=== PATIENT | male | born 1950 | race Two or more races ===

== ENCOUNTER 2021-11-19 10:41 | Inpatient (IN) | payer MEDICARE, OTHER ==
[~2021-11-19] VITALS: Ht 180.3 cm; Wt 91.6 kg
[2021-11-19] MEDS ORDERED: SODIUM CHLORIDE 0.9% 1,000 ML IV ONE ×2 (11:30)
[2021-11-19 11:41] LABS: Basophils # (auto) 0.1 10 ^3/uL (0-0.2); Basophils % (auto) 0.8 % (0.0-2.0); Eosinophils # (auto) 0 10 ^3/uL (0-0.8); Eosinophils % (auto) 0.2 % (0.0-7.0); Hematocrit 44.1 % (41.0-53.0); Hemoglobin 13.8 g/dL (13.5-17.5); Lymphocytes # (auto) 1.1 10 ^3/uL (0.4-5.4); Lymphocytes % (auto) 6.3 % (10.0-50.0); Mean Corpuscular Hgb Conc. 31.2 g/dL (32.0-36.0); Mean Corpuscular Volume 86.5 fL (80.0-100.0); Monocytes # (auto) 1.3 10 ^3/uL (0-1.3); Monocytes % (auto) 7.2 % (0.0-12.0); Neutrophils # (auto) 14.9 10 ^3/uL (1.6-8.6); Neutrophils % (auto) 85.5 % (37.0-80.0); Red Cell Distribution Width 19.7 % (11.8-14.3); White Blood Cell 17.5 10^3/uL (4.4-10.8)
[2021-11-19 11:56] LABS: INR 1.09 (0.9-1.15); Partial Thromboplastin Time 36.2 sec (24.6-33.4)
[2021-11-19 11:59] LABS: Albumin 3.3 g/dL (3.4-5.0); Calcium 9.4 mg/dL (8.5-10.1); Magnesium 2.9 mg/dL (1.6-2.6); Potassium 4.9 mmol/L (3.5-5.1)
[2021-11-19 12:02] LABS: BUN/Creatinine Ratio 21.9; Bilirubin, Total 0.8 mg/dL (0.2-1.0); Total Protein 8.3 g/dL (6.4-8.2)
[2021-11-19 13:29] LABS: Urine Bacteria FEW /hpf (None Seen); Urine Blood 3+ /uL (Negative); Urine Specific Gravity 1.015 (1.001-1.035); Urine WBC 367 /hpf (0 - 3); Urine WBC Clumps PRESENT /hpf (None Seen)
[2021-11-19] MEDS ORDERED: cefTRIAXone 1GM/50ML D5W 50 ML IV ONE (14:45)
[2021-11-19] MEDS ORDERED: FUROSEMIDE 40 MG/4 ML VIAL IV ONE (14:45)
[2021-11-19] MEDS ORDERED: MORPHINE SULFATE INJ 2 MG/ml SYRG IV PRN (15:45)
[2021-11-19] MEDS ORDERED: NITROGLYCERIN 0.4 MG SL TAB SL PRN (15:45)
[2021-11-19 16:25] LABS: Cholesterol 107 mg/dL (< 200)
[2021-11-19 16:26] LABS: HDL Cholesterol 63 mg/dL (40-59); LDL Cholesterol 47 mg/dL (< 100); Triglycerides 60 mg/dL (< 150)
[2021-11-19] MEDS: CLINDAMYCIN 600MG IV 50 ML IV SCH ×2 (18:01→23:42)
[2021-11-19 18:20] LABS: Lactic Acid w/Reflex 2.1 mmol/L (0.4-2.0)
[2021-11-19 22:00] VITALS: BP 102/61
[2021-11-19 22:40] VITALS: BP 125/72
[2021-11-19] MEDS ORDERED: LOSA-69 PO (22:53)
[2021-11-19] MEDS ORDERED: METO25TA93 PO (22:53)
[2021-11-19] MEDS ORDERED: METF-372 PO (22:53)
[2021-11-19] MEDS ORDERED: SPIR25TA8 PO (22:53)
[2021-11-19] MEDS ORDERED: POTA10TA32 PO (22:53)
[2021-11-19] MEDS ORDERED: ROSU1TAB14 PO (22:53)
[2021-11-19] MEDS ORDERED: APIX5TAB PO (22:53)
[2021-11-19] MEDS ORDERED: FUR20T PO (22:53)
[2021-11-19] MEDS ORDERED: SACU1TAB PO (22:53)
[2021-11-19] MEDS ORDERED: GABA-339 PO (22:53)
[2021-11-19] MEDS ORDERED: LEVO50TA7 PO (22:53)
[2021-11-20] MEDS: MORPHINE SULFATE INJ 2 MG/ml SYRG IV PRN ×4 (00:11→23:29)
[2021-11-20 05:00] VITALS: BP 93/53
[2021-11-20] MEDS ORDERED: SODIUM CHLORIDE 0.9% 500 ML IV ONE (05:00)
[2021-11-20 06:23] LABS: Basophils # (auto) 0.1 10 ^3/uL (0-0.2); Basophils % (auto) 0.5 % (0.0-2.0); Eosinophils # (auto) 0 10 ^3/uL (0-0.8); Eosinophils % (auto) 0.1 % (0.0-7.0); Hematocrit 43.8 % (41.0-53.0); Hemoglobin 13.9 g/dL (13.5-17.5); Lymphocytes # (auto) 1.8 10 ^3/uL (0.4-5.4); Lymphocytes % (auto) 10.3 % (10.0-50.0); Mean Corpuscular Hemoglobin 27.7 pg (28.0-32.0); Mean Corpuscular Hgb Conc. 31.6 g/dL (32.0-36.0); Mean Corpuscular Volume 87.4 fL (80.0-100.0); Monocytes # (auto) 1.2 10 ^3/uL (0-1.3); Neutrophils # (auto) 13.9 10 ^3/uL (1.6-8.6); Neutrophils % (auto) 82.1 % (37.0-80.0); Red Blood Cells 5.02 10^6/uL (4.5-5.90); Red Cell Distribution Width 20.1 % (11.8-14.3)
[2021-11-20 06:29] LABS: Potassium 4.6 mmol/L (3.5-5.1)
[2021-11-20 06:30] LABS: Albumin 2.8 g/dL (3.4-5.0); Calcium 9.2 mg/dL (8.5-10.1)
[2021-11-20 06:33] LABS: BUN/Creatinine Ratio 27.1; Bilirubin, Total 0.8 mg/dL (0.2-1.0); Total Protein 7.5 g/dL (6.4-8.2)
[2021-11-20] MEDS: CLINDAMYCIN 600MG IV 50 ML IV SCH ×2 (08:21→18:06)
[2021-11-20 09:00] VITALS: BP 98/48
[2021-11-20] MEDS: cefTRIAXone 1GM/50ML D5W 50 ML IV SCH (09:34)
[2021-11-20] MEDS: ENOXAPARIN SOD 40 MG/0.4 ML SYRINGE SC SCH (09:34)
[2021-11-20] MEDS ORDERED: FUROSEMIDE 40 MG/4 ML VIAL IV ONE (10:45)
[2021-11-20] MEDS: SODIUM CHLORIDE 0.9% 1,000 ML IV SCH ×3 (10:45→19:39)
[2021-11-20 13:00] VITALS: BP 132/64
[2021-11-20 17:00] VITALS: BP 109/62
[2021-11-20] MEDS ORDERED: DEXTROSE (50%) 50ML SYRG IV PRN (17:00)
[2021-11-20] MEDS: InsuLIN REG 1unit/0.01ml Soln (100units/ml) SC SCH ×2 (17:41→23:30)
[2021-11-20] MEDS: ACCU-CHEK COMFORT CURVE STRIP VI SCH ×2 (17:42→23:27)
[2021-11-20] MEDS: APIXABAN 5 MG TAB PO SCH (21:46)
[2021-11-20] MEDS: SACUBITRIL-VALSARTAN 24mg/26mg TAB PO SCH (21:47)
[2021-11-20] MEDS: GABAPENTIN 300 MG CAP PO SCH (21:47)
[2021-11-20 22:00] VITALS: BP 124/69
[2021-11-21] MEDS: CLINDAMYCIN 600MG IV 50 ML IV SCH ×2 (00:08→10:04)
[2021-11-21] MEDS: SODIUM CHLORIDE 0.9% 1,000 ML IV SCH ×3 (01:00→22:30)
[2021-11-21] MEDS: MORPHINE SULFATE INJ 2 MG/ml SYRG IV PRN ×3 (04:43→23:20)
[2021-11-21 05:00] VITALS: BP 121/58
[2021-11-21] MEDS: FUROSEMIDE 20 MG TAB PO SCH ×2 (05:42→18:28)
[2021-11-21] MEDS: ACCU-CHEK COMFORT CURVE STRIP VI SCH ×4 (06:11→23:07)
[2021-11-21] MEDS: LEVOTHYROXINE SODIUM 50 MCG TAB PO SCH (06:11)
[2021-11-21] MEDS: InsuLIN REG 1unit/0.01ml Soln (100units/ml) SC SCH ×4 (06:12→23:53)
[2021-11-21 09:00] VITALS: BP 113/57
[2021-11-21] MEDS: SACUBITRIL-VALSARTAN 24mg/26mg TAB PO SCH ×2 (10:00→22:55)
[2021-11-21] MEDS ORDERED: LOSARTAN POTASSIUM 50 MG TAB PO SCH (10:00)
[2021-11-21] MEDS: APIXABAN 5 MG TAB PO SCH ×2 (10:00→22:55)
[2021-11-21] MEDS: POTASSIUM CHL 10 Meq TABLET PO SCH (10:00)
[2021-11-21] MEDS: GABAPENTIN 300 MG CAP PO SCH ×2 (10:00→22:55)
[2021-11-21] MEDS: METOPROLOL SUCCINATE XL 50 MG TAB PO SCH (10:00)
[2021-11-21] MEDS: SPIRONOLACTONE 25 MG TAB PO SCH (10:00)
[2021-11-21] MEDS: ENOXAPARIN SOD 40 MG/0.4 ML SYRINGE SC SCH (10:00)
[2021-11-21] MEDS: cefTRIAXone 1GM/50ML D5W 50 ML IV SCH (10:04)
[2021-11-21] MEDS ORDERED: VANCOMYCIN 1GM/250ML 250 ML IV ONE (10:30)
[2021-11-21] MEDS ORDERED: VANCOMYCIN PER PHARMACY 0 MG IV SCH (10:30)
[2021-11-21 13:00] VITALS: BP 103/53
[2021-11-21 14:06] LABS: BUN/Creatinine Ratio 25.6; Calcium 8.7 mg/dL (8.5-10.1); Potassium 4.7 mmol/L (3.5-5.1)
[2021-11-21] MEDS ORDERED: VANCOMYCIN 500 MG in D5W 5% 100 ML IV SCH (15:45)
[2021-11-21 17:00] VITALS: BP 128/77
[2021-11-21 21:59] VITALS: BP 114/57
[2021-11-21] MEDS: ATORVASTATIN 20 MG TAB PO SCH (22:55)
[2021-11-22] MEDS: SODIUM CHLORIDE 0.9% 1,000 ML IV SCH ×3 (02:45→17:49)
[2021-11-22] MEDS: MORPHINE SULFATE INJ 2 MG/ml SYRG IV PRN ×3 (03:30→22:19)
[2021-11-22 04:28] VITALS: BP 133/68
[2021-11-22 05:34] LABS: Basophils # (auto) 0 10 ^3/uL (0-0.2); Basophils % (auto) 0.5 % (0.0-2.0); Eosinophils # (auto) 0.2 10 ^3/uL (0-0.8); Eosinophils % (auto) 2.7 % (0.0-7.0); Hematocrit 42.5 % (41.0-53.0); Hemoglobin 13.5 g/dL (13.5-17.5); Lymphocytes # (auto) 1.6 10 ^3/uL (0.4-5.4); Lymphocytes % (auto) 21.2 % (10.0-50.0); Mean Corpuscular Hemoglobin 27.5 pg (28.0-32.0); Mean Corpuscular Hgb Conc. 31.7 g/dL (32.0-36.0); Mean Corpuscular Volume 86.5 fL (80.0-100.0); Monocytes # (auto) 0.6 10 ^3/uL (0-1.3); Monocytes % (auto) 7.4 % (0.0-12.0); Neutrophils # (auto) 5.2 10 ^3/uL (1.6-8.6); Neutrophils % (auto) 68.2 % (37.0-80.0); Red Blood Cells 4.91 10^6/uL (4.5-5.90); White Blood Cell 7.6 10^3/uL (4.4-10.8)
[2021-11-22 05:35] LABS: Red Cell Distribution Width 20.1 % (11.8-14.3)
[2021-11-22 05:46] LABS: Anion Gap 5 (5-15); BUN/Creatinine Ratio 25.2; Blood Urea Nitrogen 28 mg/dL (7-18); Calcium 8.4 mg/dL (8.5-10.1); Carbon Dioxide 23 mmol/L (21-32); Chloride 105 mmol/L (98-107); GFR African American 84 mL/min; GFR Non-African American 69 mL/min; Glucose 133 mg/dL (74-106); Potassium 4.8 mmol/L (3.5-5.1); Sodium 133 mmol/L (136-145)
[2021-11-22] MEDS: InsuLIN REG 1unit/0.01ml Soln (100units/ml) SC SCH ×3 (06:00→19:29)
[2021-11-22] MEDS: ACCU-CHEK COMFORT CURVE STRIP VI SCH ×3 (06:24→18:10)
[2021-11-22] MEDS: FUROSEMIDE 20 MG TAB PO SCH ×2 (06:24→18:10)
[2021-11-22] MEDS: LEVOTHYROXINE SODIUM 50 MCG TAB PO SCH (06:24)
[2021-11-22] MEDS: SPIRONOLACTONE 25 MG TAB PO SCH (09:08)
[2021-11-22] MEDS: cefTRIAXone 1GM/50ML D5W 50 ML IV SCH (09:08)
[2021-11-22] MEDS: SACUBITRIL-VALSARTAN 24mg/26mg TAB PO SCH ×2 (09:09→21:02)
[2021-11-22] MEDS: POTASSIUM CHL 10 Meq TABLET PO SCH (09:09)
[2021-11-22] MEDS: METOPROLOL SUCCINATE XL 50 MG TAB PO SCH (09:09)
[2021-11-22] MEDS: APIXABAN 5 MG TAB PO SCH ×2 (09:09→21:02)
[2021-11-22] MEDS: GABAPENTIN 300 MG CAP PO SCH ×2 (09:09→21:03)
[2021-11-22 09:19] VITALS: BP 115/64
[2021-11-22] MEDS: VANCOMYCIN 1GM/250ML 250 ML IV SCH (10:40)
[2021-11-22 13:21] VITALS: BP 12/61
[2021-11-22 17:29] VITALS: BP 133/63
[2021-11-22] MEDS: ATORVASTATIN 20 MG TAB PO SCH (21:02)
[2021-11-22 21:20] VITALS: BP 128/68
[2021-11-22 22:00] VITALS: BP 121/57
[2021-11-23] MEDS: VANCOMYCIN 1GM/250ML 250 ML IV SCH ×2 (00:46→14:00)
[2021-11-23] MEDS: SODIUM CHLORIDE 0.9% 1,000 ML IV SCH ×4 (00:51→18:45)
[2021-11-23] MEDS: ACCU-CHEK COMFORT CURVE STRIP VI SCH ×5 (00:52→23:39)
[2021-11-23] MEDS: InsuLIN REG 1unit/0.01ml Soln (100units/ml) SC SCH ×5 (01:04→23:40)
[2021-11-23] MEDS: MORPHINE SULFATE INJ 2 MG/ml SYRG IV PRN ×4 (03:00→23:00)
[2021-11-23 05:00] VITALS: BP 111/63
[2021-11-23] MEDS: LEVOTHYROXINE SODIUM 50 MCG TAB PO SCH (06:37)
[2021-11-23] MEDS: FUROSEMIDE 20 MG TAB PO SCH ×2 (06:37→18:22)
[2021-11-23 09:00] VITALS: BP 123/6
[2021-11-23] MEDS: cefTRIAXone 1GM/50ML D5W 50 ML IV SCH (09:10)
[2021-11-23] MEDS: SACUBITRIL-VALSARTAN 24mg/26mg TAB PO SCH ×2 (09:10→23:03)
[2021-11-23] MEDS: SPIRONOLACTONE 25 MG TAB PO SCH (09:11)
[2021-11-23] MEDS: POTASSIUM CHL 10 Meq TABLET PO SCH (09:11)
[2021-11-23] MEDS: GABAPENTIN 300 MG CAP PO SCH ×2 (09:11→23:03)
[2021-11-23] MEDS: METOPROLOL SUCCINATE XL 50 MG TAB PO SCH (09:12)
[2021-11-23] MEDS: APIXABAN 5 MG TAB PO SCH ×2 (09:12→22:00)
[2021-11-23 13:00] VITALS: BP 124/67
[2021-11-23 17:00] VITALS: BP 121/55
[2021-11-23 22:00] VITALS: BP 115/58
[2021-11-23] MEDS: ATORVASTATIN 20 MG TAB PO SCH (23:03)
[2021-11-24] VITALS (9 sets, daily range): BP systolic 112–150; BP diastolic 46–85
[2021-11-24] MEDS: VANCOMYCIN 1GM/250ML 250 ML IV SCH (04:00)
[2021-11-24] MEDS: SODIUM CHLORIDE 0.9% 1,000 ML IV SCH ×3 (04:57→17:30)
[2021-11-24 05:47] LABS: BUN/Creatinine Ratio 27.8; Calcium 8.7 mg/dL (8.5-10.1); Potassium 4.1 mmol/L (3.5-5.1)
[2021-11-24] MEDS: InsuLIN REG 1unit/0.01ml Soln (100units/ml) SC SCH ×4 (06:00→23:24)
[2021-11-24] MEDS: FUROSEMIDE 20 MG TAB PO SCH ×2 (06:00→18:18)
[2021-11-24] MEDS: ACCU-CHEK COMFORT CURVE STRIP VI SCH ×4 (06:25→23:18)
[2021-11-24] MEDS: LEVOTHYROXINE SODIUM 50 MCG TAB PO SCH (06:27)
[2021-11-24] MEDS: MORPHINE SULFATE INJ 2 MG/ml SYRG IV PRN ×4 (08:18→23:31)
[2021-11-24] MEDS: cefTRIAXone 1GM/50ML D5W 50 ML IV SCH (08:35)
[2021-11-24] MEDS: METOPROLOL SUCCINATE XL 50 MG TAB PO SCH (09:55)
[2021-11-24] MEDS: SPIRONOLACTONE 25 MG TAB PO SCH (09:55)
[2021-11-24] MEDS: SACUBITRIL-VALSARTAN 24mg/26mg TAB PO SCH ×2 (09:55→21:28)
[2021-11-24] MEDS: POTASSIUM CHL 10 Meq TABLET PO SCH (09:55)
[2021-11-24] MEDS: GABAPENTIN 300 MG CAP PO SCH ×2 (09:56→21:29)
[2021-11-24] MEDS: APIXABAN 5 MG TAB PO SCH ×2 (09:56→21:28)
[2021-11-24] MEDS ORDERED: ACETAMINOPHEN 325 MG TAB PO PRN (10:45)
[2021-11-24] MEDS ORDERED: IOHEXOL 350 MG/ML 100ML IJ ONE (12:57)
[2021-11-24] MEDS ORDERED: LIDOCAINE 2%HCL (LOCAL ANESTH.) INJ 20ML MDV ONE (12:57)
[2021-11-24] MEDS ORDERED: ANGIOMAX 250 MG VIAL IV ONE (13:18)
[2021-11-24] MEDS ORDERED: MIDAZOLAM HCL 2MG/2ML 2ml VIAL (1mg/ml) ONE (13:18)
[2021-11-24] MEDS ORDERED: fentaNYL CITRATE 100 MCG/2 ML VL ONE (13:18)
[2021-11-24] MEDS ORDERED: SODIUM CHL 0.9% 0 ML ONE (13:18)
[2021-11-24] MEDS ORDERED: VANCOMYCIN 1GM/250ML 250 ML IV SCH (18:00)
[2021-11-24] MEDS: ATORVASTATIN 20 MG TAB PO SCH (21:28)
[2021-11-25] MEDS: SODIUM CHLORIDE 0.9% 1,000 ML IV SCH ×3 (03:12→10:45)
[2021-11-25 05:00] VITALS: BP 130/68
[2021-11-25] MEDS: ACCU-CHEK COMFORT CURVE STRIP VI SCH ×2 (05:21→11:54)
[2021-11-25] MEDS: FUROSEMIDE 20 MG TAB PO SCH (05:21)
[2021-11-25] MEDS: InsuLIN REG 1unit/0.01ml Soln (100units/ml) SC SCH ×2 (05:33→12:16)
[2021-11-25] MEDS: LEVOTHYROXINE SODIUM 50 MCG TAB PO SCH (05:34)
[2021-11-25] MEDS: MORPHINE SULFATE INJ 2 MG/ml SYRG IV PRN (05:38)
[2021-11-25 09:00] VITALS: BP 111/55
[2021-11-25] MEDS ORDERED: CIPR-173 PO (09:22)
[2021-11-25] MEDS: SACUBITRIL-VALSARTAN 24mg/26mg TAB PO SCH (09:28)
[2021-11-25] MEDS: cefTRIAXone 1GM/50ML D5W 50 ML IV SCH (09:28)
[2021-11-25] MEDS: METOPROLOL SUCCINATE XL 50 MG TAB PO SCH (09:28)
[2021-11-25] MEDS: SPIRONOLACTONE 25 MG TAB PO SCH (09:29)
[2021-11-25] MEDS: POTASSIUM CHL 10 Meq TABLET PO SCH (09:29)
[2021-11-25] MEDS: APIXABAN 5 MG TAB PO SCH (09:29)
[2021-11-25] MEDS: GABAPENTIN 300 MG CAP PO SCH (09:29)
[2021-11-25 11:37] VITALS: BP 111/55
[2021-11-25 13:00] VITALS: BP 99/66
== END 2021-11-25 15:30 | disposition home or self-care (01) | DRG 871 ==
LOC: ER 10:41 → TELE 15:32 → TELE-WESTW 22:13
PROVIDERS: ADMIT Registered Nurse; ATTEND Family Medicine
PROC: 05HD33Z Insertion of Infusion Device into Right Cephalic Vein, Percutaneous Approach (ICD-10-PCS; principal; 2021-11-19)
PROC: B54MZZA Ultrasonography of Right Upper Extremity Veins, Guidance (ICD-10-PCS; 2021-11-19)
PROC: 4A023N7 Measurement of Cardiac Sampling and Pressure, Left Heart, Percutaneous Approach (ICD-10-PCS; 2021-11-24)
PROC: B2111ZZ Fluoroscopy of Multiple Coronary Arteries using Low Osmolar Contrast (ICD-10-PCS; 2021-11-24)
PROC: B2151ZZ Fluoroscopy of Left Heart using Low Osmolar Contrast (ICD-10-PCS; 2021-11-24)
DX: A41.01 Sepsis due to Methicillin susceptible Staphylococcus aureus (principal); G93.41 Metabolic encephalopathy; R65.21 Severe sepsis with septic shock; I50.43 Acute on chronic combined systolic (congestive) and diastolic (congestive) heart failure; E44.1 Mild protein-calorie malnutrition; I13.0 Hypertensive heart and chronic kidney disease with heart failure and stage 1 through stage 4 chronic kidney disease, or unspecified chronic kidney disease; L03.90 Cellulitis, unspecified; N39.0 Urinary tract infection, site not specified; N17.9 Acute kidney failure, unspecified; I42.0 Dilated cardiomyopathy; Z20.822 Contact with and (suspected) exposure to COVID-19; E11.22 Type 2 diabetes mellitus with diabetic chronic kidney disease; E11.621 Type 2 diabetes mellitus with foot ulcer; F03.90 Unspecified dementia, unspecified severity, without behavioral disturbance, psychotic disturbance, mood disturbance, and anxiety; N18.32 Chronic kidney disease, stage 3b; L97.509 Non-pressure chronic ulcer of other part of unspecified foot with unspecified severity; E11.65 Type 2 diabetes mellitus with hyperglycemia; R80.9 Proteinuria, unspecified; N20.0 Calculus of kidney; E11.40 Type 2 diabetes mellitus with diabetic neuropathy, unspecified; B96.1 Klebsiella pneumoniae [K. pneumoniae] as the cause of diseases classified elsewhere; E86.0 Dehydration; E11.51 Type 2 diabetes mellitus with diabetic peripheral angiopathy without gangrene; I48.91 Unspecified atrial fibrillation; N40.0 Benign prostatic hyperplasia without lower urinary tract symptoms; Z79.01 Long term (current) use of anticoagulants; Z87.891 Personal history of nicotine dependence; Z68.28 Body mass index [BMI] 28.0-28.9, adult
CPT/HCPCS: 36415; 70450; 71045; 71250; 73700; 74176; 80048; 80053; 80061; 80202; 81001; 82962; 83036; 83605; 83735; 83880; 84484; 85025; 85379; 85610; 85730; 87040; 87077; 87086; 87088; 87186; 93005; 93306; 93458; 93886; 93925; 96361; 96365; 96375; 99152; G0378; J0696; J1815; J2250; J3490